=== PATIENT | female | born 1995 | race American Indian/Alaskan Native ===

== ENCOUNTER 2019-10-29 20:05 | Emergency (ER) | payer MEDICAID ==
[2019-10-29 20:14] VITALS: BP 109/59
[2019-10-29 21:00] LABS: Bilirubin,Urine NEG (Negative); Blood,Urine NEG (Negative); Color,Urine Yellow (Yellow); Mucus,Urine 2+ /HPF; Protein,Urine <15 mg/dL mg/dL (Negative); Renal Epithelial Cells,Urine 1 /LPF; Urobilinogen,Urine < 2.0 mg/dL (<2.0)
[2019-10-29 21:57] LABS: Basophils % (Auto) 0.5 % (0.0-1.8); Eosinophils # (Auto) 0.2 K/mm3 (0.0-0.4); Hemoglobin 11.2 gm/dl (10.1-14.3); Lymphocytes % (Auto) 29.2 % (13.4-35.0); Mean Corpuscular HGB Conc 33 % (30-34); Mean Corpuscular Volume 88 fl (79-97); Monocytes # (Auto) 0.5 K/mm3 (0.0-0.8); Platelet Count 218 K/mm3 (140-440); Red Blood Count 3.87 M/mm3 (3.65-5.03); Red Cell Distribution Width 14.8 % (13.2-15.2)
[2019-10-29 22:18] LABS: Alanine Aminotransferase 13 units/L (7-56); Albumin 4.5 g/dL (3.9-5); BUN/Creatinine Ratio 21; Blood Urea Nitrogen 17 mg/dL (7-17); Calcium 9.7 mg/dL (8.4-10.2); Hemolysis Index 1
--- NOTE | 2019-10-29 22:50 | Emergency Department Report ---
HPI - General Chief Complaint: Abdominal Pain Time Seen by Provider: 10/29/19 22:35 - HPI HPI: Room 42 The patient is a 24-year-old female presenting with chief complaint of vaginal spotting and . The patient states she took a Plan B pill mid-September 2019. The patient states early October she took a home test that was positive. This week the patient states she's had very light vaginal spotting. Patient complains of some lower abdominal pain nausea and dizziness. The patient states she came to the emergency department confirm that she was Location: [See above] Duration: [See above] Quality: [See above] Severity: [See above] Timing: [See above] Context: [See above] Modifying factors: [See above] Associated signs and symptoms: [see above] ED Past Medical Hx - Past Medical History Previous Medical History?: No Additional medical history: PATELLA BONE SYNDROME - Surgical History Past Surgical History?: Yes Additional Surgical History: - Family History Family history: no significant - Social History Smoking Status: Never Smoker Substance Use Type: None - Medications Home Medications: Home Medications Medication Instructions Recorded Confirmed Last Taken Type Pnv 21/Iron Ps,Heme Ppep/Folic 1 each PO QDAY #30 tablet 02/01/15 Unknown Rx [Prefera Ob Tablet] ED Review of Systems ROS: Stated complaint: ABD PAIN/SPOTTING BLOOD/ Other details as noted in HPI Constitutional: no symptoms reported Eyes: denies: eye pain ENT: denies: throat pain Respiratory: no symptoms reported Cardiovascular: denies: chest pain Endocrine: no symptoms reported Gastrointestinal: abdominal pain, nausea Genitourinary: abnormal menses Musculoskeletal: denies: back pain Neurological: headache Psychiatric: denies: depression Physical Exam - Physical Exam Vital Signs: Vital Signs 10/29/19 10/29/19 20:09 20:11 Temperature 97.9 F 97.9 F Pulse Rate 66 68 Respiratory 16 18 Rate Blood Pressure 109/54 109/59 O2 Sat by Pulse 100 100 Oximetry Physical Exam: GENERAL: The patient is well-developed well-nourished female sitting in her spouse's lap not appearing to be in acute distress. [] HEENT: Normocephalic. Atraumatic. Extraocular motions are intact. Patient has moist mucous membranes. NECK: Supple. Trachea midline CHEST/LUNGS: Clear to auscultation. There is no respiratory distress noted. HEART/CARDIOVASCULAR: Regular. There is no tachycardia. There is no gallop rub or murmur. ABDOMEN: Abdomen is soft, with mild lower abdominal discomfort to palpation. No rebound or guarding. Patient has normal bowel sounds. There is no abdominal distention. SKIN: There is no rash. There is no edema. There is no diaphoresis. NEURO: The patient is awake, alert, and oriented. The patient is cooperative. The patient has no focal neurologic deficits. The patient has normal speech MUSCULOSKELETAL: There is no evidence of acute injury. ED Course Vital Signs 10/29/19 10/29/19 20:09 20:11 Temperature 97.9 F 97.9 F Pulse Rate 66 68 Respiratory 16 18 Rate Blood Pressure 109/54 109/59 O2 Sat by Pulse 100 100 Oximetry ED Medical Decision Making - Lab Data Result diagrams: 10/29/19 21:39 10/29/19 21:39 Laboratory Tests 10/29/19 10/29/19 10/29/19 20:42 21:39 21:39 WBC 6.8 RBC 3.87 Hgb 11.2 Hct 34.0 MCV 88 MCH 29 MCHC 33 RDW 14.8 Plt Count 218 Lymph % (Auto) 29.2 [place] % (Auto) 7.0 Eos % (Auto) 3.0 Baso % (Auto) 0.5 Lymph # 2.0 [place] # 0.5 Eos # 0.2 Baso # 0.0 Seg Neutrophils % 60.3 Seg Neutrophils # 4.1 Sodium 136 L Potassium 3.8 Chloride 100.4 Carbon Dioxide 22 Anion Gap 17 BUN 17 Creatinine 0.8 Estimated GFR > 60 BUN/Creatinine Ratio 21 Glucose 57 L Calcium 9.7 Total Bilirubin 0.20 AST 20 ALT 13 Alkaline Phosphatase 46 Total Protein 8.0 Albumin 4.5 Albumin/Globulin Ratio 1.3 HCG, Quant Urine Color Yellow Urine Turbidity Clear Urine pH 6.0 Ur Specific [place] 1.034 H Urine Protein <15 mg/dl Urine Glucose (UA) Neg Urine Ketones Tr Urine Blood Neg Urine Nitrite Neg Urine Bilirubin Neg Urine Urobilinogen < 2.0 Ur Leukocyte Esterase Neg Urine WBC (Auto) 4.0 Urine RBC (Auto) 2.0 U Epithel Cells (Auto) 2.0 Ur Renal Epithelial Cell 1 Urine Mucus 2+ 10/29/19 21:39 WBC RBC Hgb Hct MCV MCH MCHC RDW Plt Count Lymph % (Auto) [place] % (Auto) Eos % (Auto) Baso % (Auto) Lymph # [place] # Eos # Baso # Seg Neutrophils % Seg Neutrophils # Sodium Potassium Chloride Carbon Dioxide Anion Gap BUN Creatinine Estimated GFR BUN/Creatinine Ratio Glucose Calcium Total Bilirubin AST ALT Alkaline Phosphatase Total Protein Albumin Albumin/Globulin Ratio HCG, Quant 94701 H Urine Color Urine Turbidity Urine pH Ur Specific [place] Urine Protein Urine Glucose (UA) Urine Ketones Urine Blood Urine Nitrite Urine Bilirubin Urine Urobilinogen Ur Leukocyte Esterase Urine WBC (Auto) Urine RBC (Auto) U Epithel Cells (Auto) Ur Renal Epithelial Cell Urine Mucus - Radiology Data Radiology results: report reviewed (pelvic ultrasound), image reviewed (pelvic ultrasound) [facility] [address] [place] [address] Ultrasound Report Signed Patient: ROSS MAHONEY R#: [id number] : 1995 Acct:[id number] Age/Sex: 24 / F ADM Date: 10/29/19 Loc: ED Attending Dr: Ordering Physician: JAMAICA GRIFFIN MD Date of Service: 10/29/19 Procedure(s): US OB <= 14 weeks fetus Accession Number(s): [id number] cc: JAMAICA GRIFFIN MD US OB <= 14 weeks fetus INDICATION / CLINICAL INFORMATION: , vaginal spotting. COMPARISON: None available. FINDINGS: Transabdominal imaging was performed. There is an intrauterine gestational sac with yolk sac and pole. [place]- rump length is 1.14 cm (7 weeks, 2 days). heart rate is 148. 2 cm complex right ovarian cyst is noted. There is also a 1.9 cm left ovarian cyst. No free fluid. IMPRESSION: 1. Single viable intrauterine with sonographic gestational age of 7 weeks, 2 days. Signer Name: Niko Del Valle MD Signed: 10/30/2019 1:29 AM Workstation Name: [id number] Transcribed By: AQUILINO Dictated By: Niko Del Valle MD Electronically Authenticated By: Niko Del Valle MD Signed Date/Time: 10/30/19128 DD/ 6 TD/TT: - Differential Diagnosis threatened , missed , ectopic Critical care attestation.: If time is entered above; I have spent that time in minutes in the direct care of this critically ill patient, excluding procedure time. ED Disposition Clinical Impression: Threatened Disposition: DC-01 TO HOME OR SELFCARE Is pt being admited?: No Does the pt Need Aspirin: No Condition: Stable Instructions: Abdominal Pain (ED), Threatened Miscarriage (ED) Additional Instructions: Return to the emergency department should you develop worsening symptoms, inability to tolerate food or liquids, high fever or any other concerns Referrals: ISRAEL AUGUSTIN MD [Staff Physician] - [facility] (Dr. Augustin is an [employer]. Please follow-up with her for further evaluation) Time of Disposition: 01:43
--- NOTE | 2019-10-30 01:33 | Ultrasound Report ---
US OB <= 14 weeks fetus INDICATION / CLINICAL INFORMATION: , vaginal spotting. COMPARISON: None available. FINDINGS: Transabdominal imaging was performed. There is an intrauterine gestational sac with yolk sac and pole. [place]-rump length is 1.14 cm ( 7 weeks, 2 days). heart rate is 148. 2 cm complex right ovarian cyst is noted. There is also a 1.9 cm left ovarian cyst. No free fluid. IMPRESSION: 1. Single viable intrauterine with sonographic gestational age of 7 weeks, 2 days. Signer Name: Niko Del Valle MD Signed: 10/30/2019 1:29 AM Workstation Name: [id number]
== END 2019-10-30 01:54 | disposition home or self-care (01) ==
LOC: ED 20:05
DX: O20.0 Threatened abortion (principal); Z79.899 Other long term (current) drug therapy; Z3A.01 Less than 8 weeks gestation of pregnancy
CPT/HCPCS: 36415; 76801; 80053; 81001; 84702; 85025